=== PATIENT | female | born 1985 | race Caucasian/White ===

== ENCOUNTER 2017-01-27 19:57 | Emergency (ER) | payer BC ==
[2017-01-27 20:22] LABS: Bilirubin Negative (Negative); Blood, Urine Small (Negative); Clarity Clear (Clear); Glucose, Urine (Dipstick) Negative (Negative); Leukocyte Negative (Negative); Nitrite Negative (Negative); Protein, Urine (Dipstick) Negative (Neg-Trace); Urobilinogen 0.2 mg/dL (0.2-1.0)
[2017-01-27 20:23] LABS: Bacteria/HPF Rare-Few HPF (None Seen); Squamous Epithelial 0-3 HPF (0-3); WBC/HPF None Seen HPF (0-3)
[2017-01-27] MEDS ORDERED: HYDROcodone/Acetaminophen 5/325 mg Tablet ONE ×2 (20:24→21:33)
[2017-01-27 20:25] LABS: Pregnancy Test - Urine (BHCG) NEGATIVE (NEGATIVE); Pregu Control Bar Appear? YES (CONTROL BAR)
[2017-01-27] MEDS ORDERED: Ketorolac Tromethamine 30 MG/ML VIAL ONE ×2 (20:25→20:35)
[2017-01-27] MEDS ORDERED: Orphenadrine Citrate 60 MG/2 ML VIAL ONE (20:25)
[2017-01-27 20:45] LABS: #Basophils 0.1 thou/uL (0.0-0.2); #Eosinphils 0.2 thou/uL (0.0-0.7); #Lymphocytes 2.7 thou/uL (1.20-3.40); #Neutrophils 5.5 thou/uL (1.40-6.50); %Basophils 0.9 % (0.0-1.0); %Eosinophils 1.7 % (0.0-10.0); %Lymphocytes 28.6 % (21.0-51.0); %Monocytes 10.9 % (0.0-10.0); %Neutrophils 57.9 % (42.0-75.0); Hemoglobin 14.8 g/dL (12.0-16.0); Mean Corpuscular HGB CONC 33.7 g/dL (32.0-36.0); Mean Corpuscular Hemoglobin 30.2 pg (27.0-31.0); Mean Corpuscular Volume 89.6 fl (81.0-99.0); Mean Platelet Volume 7.4 fL (7.4-10.4); Platelet Count 277 thou/uL (130-400); RBC Distribution Width 12.1 % (11.5-14.5); White Blood Cell (WBC) Count 9.4 thou/uL (4.8-10.8)
[2017-01-27 21:01] LABS: ALT (SGPT) 20 U/L (8-55); AST (SGOT) 19 U/L (5-34); Albumin 4.5 g/dL (3.5-5.0); Alkaline Phosphatase 63 U/L (40-150); Anion Gap 16 mmol/L (10-20); BUN (Urea Nitrogen) 9 mg/dL (7.0-18.7); Bilirubin, Total 0.9 mg/dL (0.2-1.2); Calc. Creatinine Clearance 0 mL/min (70-130); Calcium 9.6 mg/dL (7.8-10.44); Carbon Dioxide 24 mmol/L (22-29); Chloride 107 mmol/L (98-107); Estimated GFR-MDRD Greater than 90; Globulin 2.9 g/dL (2.4-3.5); Glucose 85 mg/dL (70-105); Potassium 4.2 mmol/L (3.5-5.1); Protein, Total 7.4 g/dL (6.0-8.3); Sodium 143 mmol/L (136-145)
--- NOTE | 2017-01-27 21:08 | RAD ---
LUMBAR SPINE THREE VIEWS: 01/27/17 HISTORY: 31-year-old female with low back pain. No evidence for acute fracture or dislocation. No significant malalignment. IMPRESSION: Unremarkable lumbar spine. Incidental IUD in place. POS: CLAUDIO
== END 2017-01-27 21:39 | disposition home or self-care (01) ==
LOC: MADERS 19:57
DX: S39.012A Strain of muscle, fascia and tendon of lower back, initial encounter (principal); F32.9 Major depressive disorder, single episode, unspecified; F17.210 Nicotine dependence, cigarettes, uncomplicated; Z79.899 Other long term (current) drug therapy; X58.XXXA Exposure to other specified factors, initial encounter
CPT/HCPCS: 36415; 72100; 80053; 81003; 81015; 81025; 85025; 96372; J1885; J2360

== ENCOUNTER 2017-11-08 09:26 | Emergency (ER) | payer BC ==
[2017-11-08 09:55] LABS: Bilirubin Negative (Negative); Blood, Urine Trace (Negative); Clarity Clear (Clear); Glucose, Urine (Dipstick) Negative (Negative); Leukocyte Negative (Negative); Nitrite Negative (Negative); Protein, Urine (Dipstick) Negative (Neg-Trace); Urobilinogen 0.2 mg/dL (0.2-1.0); pH, Urine 5.5 (5.0-9.0)
[2017-11-08 09:56] LABS: Bacteria/HPF Rare-Few HPF (None Seen); RBC/HPF 0-3 HPF (0-3); Specific Gravity, Urine 1.002 (1.002-1.036); Squamous Epithelial 0-3 HPF (0-3); WBC/HPF 0-3 HPF (0-3)
[2017-11-08 09:57] LABS: Pregnancy Test - Urine (BHCG) Negative (Negative); Pregu Control Background? CLEAR/WHITE (CLR/WHITE); Pregu Control Bar Appear? YES (CONTROL BAR); Specific Gravity 1.002 (1.002-1.036)
[2017-11-08] MEDS ORDERED: HYDROcodone/Acetaminophen 10/325 mg Tablet ONE (10:02)
[2017-11-08] MEDS ORDERED: Sulfameth/Trimethoprim DS 800-160mg TAB ONE (10:03)
[2017-11-08] MEDS ORDERED: Ondansetron ODT 4 MG TAB ONE (10:03)
== END 2017-11-08 10:10 | disposition home or self-care (01) ==
LOC: MADERS 09:26
DX: N39.0 Urinary tract infection, site not specified (principal); F32.9 Major depressive disorder, single episode, unspecified; F17.210 Nicotine dependence, cigarettes, uncomplicated; Z79.891 Long term (current) use of opiate analgesic; Z79.899 Other long term (current) drug therapy
CPT/HCPCS: 81003; 81015; 81025; 99284; Q0162

== ENCOUNTER 2018-04-07 10:47 | Emergency (ER) | payer BC ==
[2018-04-07] MEDS ORDERED: Ibuprofen 800 MG TAB ONE (11:35)
--- NOTE | 2018-04-07 11:50 | RAD ---
RIGHT ANKLE 3 VIEWS: Date: 04/07/18 INDICATION: Pain. FINDINGS: There is no evidence of fracture or dislocation. Mortise is intact. IMPRESSION: No acute osseous abnormality of the right ankle. POS: BILL
--- NOTE | 2018-04-07 11:51 | RAD ---
3 VIEWS RIGHT FOOT: Date: 04/07/18 INDICATION: Slipped on kitchen floor with right foot pain. FINDINGS: No acute fracture or subluxation is evident. No radiopaque foreign body is noted. Lisfranc alignment is preserved. IMPRESSION: No acute osseous abnormality. POS: BILL
== END 2018-04-07 12:05 | disposition home or self-care (01) ==
LOC: MADERS 10:47
DX: S93.601A Unspecified sprain of right foot, initial encounter (principal); S93.491A Sprain of other ligament of right ankle, initial encounter; F32.9 Major depressive disorder, single episode, unspecified; F17.210 Nicotine dependence, cigarettes, uncomplicated; I10 Essential (primary) hypertension; W18.30XA Fall on same level, unspecified, initial encounter

== ENCOUNTER 2018-10-10 10:52 | Emergency (ER) | payer BC ==
--- NOTE | 2018-10-10 12:40 | RAD ---
PA AND LATERAL CHEST: HISTORY: Cough and fever. FINDINGS: Heart size and mediastinum are within normal limits. Lungs appear clear of any focal infiltrative pr ocess. IMPRESSION: No active intrathoracic disease. POS: [facility]
== END 2018-10-10 13:00 | disposition home or self-care (01) ==
LOC: MADERS 10:52
DX: B34.9 Viral infection, unspecified (principal); F32.9 Major depressive disorder, single episode, unspecified; F17.210 Nicotine dependence, cigarettes, uncomplicated
CPT/HCPCS: 71046; 87081; 87430; 87804

== ENCOUNTER 2019-04-15 13:23 | Emergency (ER) | payer BC ==
[2019-04-15] MEDS ORDERED: Adacel (T-DAP) 0.5 ML SYRINGE ONE (13:39)
== END 2019-04-15 14:00 | disposition home or self-care (01) ==
LOC: MADERS 13:23
DX: S91.311A Laceration without foreign body, right foot, initial encounter (principal); F32.9 Major depressive disorder, single episode, unspecified; F17.210 Nicotine dependence, cigarettes, uncomplicated; W45.8XXA Other foreign body or object entering through skin, initial encounter
CPT/HCPCS: 90471; 90715

== ENCOUNTER 2019-08-19 12:23 | Emergency (ER) | payer BC, SELFPAY ==
[2019-08-19 13:13] LABS: #Basophils 0.1 thou/uL (0.0-0.2); #Eosinphils 0.2 thou/uL (0.0-0.7); #Monocytes 0.7 thou/uL (0.11-0.59); #Neutrophils 4.6 thou/uL (1.40-6.50); %Eosinophils 2.1 % (0.0-10.0); %Lymphocytes 26.8 % (21.0-51.0); %Monocytes 8.9 % (0.0-10.0); %Neutrophils 61.2 % (42.0-75.0); Hemoglobin 15.5 g/dL (12.0-16.0); Mean Corpuscular HGB CONC 30.3 g/dL (32.0-36.0); Mean Corpuscular Hemoglobin 26.7 pg (27.0-31.0); Mean Corpuscular Volume 88.1 fL (78.0-98.0); Mean Platelet Volume 7.2 fL (7.4-10.4); Platelet Count 363 thou/uL (130-400); RBC Distribution Width 12.4 % (11.5-14.5); Red Blood Cell (RBC) Count 5.81 mill/uL (4.20-5.40); White Blood Cell (WBC) Count 7.6 thou/uL (4.8-10.8)
[2019-08-19 13:22] LABS: Bicarbonate (HCO3v) 28.4 mmol/L (22.0-28.0); CO2 Tension (PvCO2) 58.7 mmHg (40.0-50.0); Calcium, Ionized 1.25 mmol/L (See Comments:); Chloride 112 mmol/L (98-107); Hemoglobin - Calc 18.1 g/dL (12.0-16.0); Potassium 4.1 mmol/L (3.5-5.1); Sodium 144 mmol/L (138-145); T. Carbon Dioxide 30.2 mmol/L (22.0-28.0); vO2 Saturation-calc 55.4 % (60.0-85.0)
[2019-08-19 13:23] LABS: ALT (SGPT) 22 U/L (8-55); AST (SGOT) 17 U/L (5-34); Albumin 4.6 g/dL (3.5-5.0); Alkaline Phosphatase 72 U/L (40-110); Anion Gap 15 mmol/L (10-20); BUN (Urea Nitrogen) 7 mg/dL (7.0-18.7); Bilirubin, Total 0.6 mg/dL (0.2-1.2); Calc. Creatinine Clearance 0 mL/min (70-130); Calcium 9.7 mg/dL (7.8-10.44); Carbon Dioxide 26 mmol/L (22-29); Chloride 105 mmol/L (98-107); Estimated GFR-MDRD 78; Globulin 3.4 g/dL (2.4-3.5); Glucose 95 mg/dL (70-105); Sodium 142 mmol/L (136-145)
--- NOTE | 2019-08-19 13:43 | RAD ---
PORTABLE CHEST: 08/19/2019 PROVIDED CLINICAL HISTORY: Dyspnea. COMPARISON: 10/10/2018 FINDINGS: The cardiac and mediastinal silhouette is within normal limits. No focal consolidation, pleural fluid or pneumothorax apparent. IMPRESSION: No evidence for an acute cardiopulmonary process. POS: [facility]
--- NOTE | 2019-08-19 14:08 | CT ---
CT BRAIN: 08/19/2019 PROVIDED CLINICAL HISTORY: Injury. COMPARISON: 11/08/2013 FINDINGS: The ventricular system appears normal in size and morphology. There is no evidence for intracranial h emorrhage or mass effect. The extracranial soft tissues and osseous structures demonstrate an unremar kable CT appearance. IMPRESSION: No evidence for intracranial hemorrhage or mass effect. POS: [facility]MANI
[2019-08-19 15:12] LABS: Bilirubin Negative (Negative); Blood, Urine Small (Negative); Clarity Clear (Clear); Glucose, Urine (Dipstick) Negative (Negative); Leukocyte Negative (Negative); Nitrite Negative (Negative); Protein, Urine (Dipstick) Negative (Neg-Trace); Urobilinogen 0.2 mg/dL (Less than 2)
[2019-08-19 15:18] LABS: Bacteria/HPF Rare-Few HPF (None Seen); RBC/HPF 0-3 HPF (0-3); Squamous Epithelial 0-3 HPF (0-3); WBC/HPF None Seen HPF (0-3)
== END 2019-08-19 16:30 | disposition home or self-care (01) ==
LOC: MADERS 12:23
DX: I95.1 Orthostatic hypotension (principal); M79.7 Fibromyalgia; F32.9 Major depressive disorder, single episode, unspecified; F17.210 Nicotine dependence, cigarettes, uncomplicated
CPT/HCPCS: 36415; 70450; 71045; 80053; 81003; 81015; 82330; 82803; 83880; 84484; 85025; 93005

== ENCOUNTER 2022-07-05 02:52 | Emergency (ER) | payer SELFPAY ==
[2022-07-05 03:41] LABS: #Basophils 0.1 thou/uL (0.0-0.2); #Eosinphils 0.2 thou/uL (0.0-0.7); #Lymphocytes 2.3 thou/uL (1.20-3.40); #Monocytes 0.9 thou/uL (0.11-0.59); #Neutrophils 10.3 thou/uL (1.40-6.50); %Basophils 0.9 % (0.0-1.0); %Eosinophils 1.3 % (0.0-10.0); %Lymphocytes 16.7 % (21.0-51.0); %Monocytes 6.5 % (0.0-10.0); %Neutrophils 74.6 % (42.0-75.0); Hemoglobin 15.5 g/dL (12.0-16.0); Mean Corpuscular HGB CONC 32.6 g/dL (32.0-36.0); Mean Corpuscular Hemoglobin 28.9 pg (27.0-31.0); Mean Corpuscular Volume 88.6 fL (78.0-98.0); Mean Platelet Volume 7.3 fL (7.4-10.4); Platelet Count 329 thou/uL (130-400); RBC Distribution Width 12.1 % (11.5-14.5); Red Blood Cell (RBC) Count 5.36 mill/uL (4.20-5.40); White Blood Cell (WBC) Count 13.9 thou/uL (4.8-10.8)
[2022-07-05] MEDS ORDERED: Sodium Chloride 0.9% 1,000 ML ONE (03:50)
[2022-07-05] MEDS ORDERED: Ondansetron PF 4 MG/2 ML Vial ONE ×2 (03:50→05:28)
[2022-07-05] MEDS ORDERED: Morphine 4 MG/ML VIAL ONE ×2 (03:50→05:28)
[2022-07-05 03:51] LABS: BHCG - Serum Negative (NEGATIVE); Pregs Control Background? CLEAR/WHITE (CLR/WHITE); Pregs Control Bar Appear? YES (CONTROL BAR)
[2022-07-05 04:01] LABS: ALT (SGPT) 27 U/L (8-55); AST (SGOT) 18 U/L (5-34); Albumin 4.3 g/dL (3.5-5.0); Alkaline Phosphatase 79 U/L (40-110); Anion Gap 16 mmol/L (10-20); BUN (Urea Nitrogen) 17 mg/dL (7.0-18.7); Bilirubin, Total 0.3 mg/dL (0.2-1.2); Calc. Creatinine Clearance 0 mL/min (70-130); Calcium 9.4 mg/dL (7.8-10.44); Carbon Dioxide 23 mmol/L (22-29); Chloride 103 mmol/L (98-107); Estimated GFR 85; Globulin 3.3 g/dL (2.4-3.5); Glucose 100 mg/dL (70-105); Lipase 32 U/L (8-78); Potassium 3.7 mmol/L (3.5-5.1); Protein, Total 7.6 g/dL (6.0-8.3); Sodium 138 mmol/L (136-145)
[2022-07-05] MEDS ORDERED: metroNIDAZOLE 500 MG/100 ML BAG ONE ×2 (05:28→05:30)
[2022-07-05 06:10] LABS: SARS-CoV-2 NAA Rapid Test Not Detected (NotDetected)
[2022-07-05] MEDS ORDERED: Midazolam HCl 5 mg/5 ml Vial ONE (06:15)
[2022-07-05] MEDS ORDERED: fentaNYL Citrate/PF 100 MCG/2 ML SYRINGE ONE (06:16)
[2022-07-05] MEDS ORDERED: Iopamidol 370 76% 100 ML VIAL ONE (10:39)
== END 2022-07-05 06:06 | disposition short-term general hospital (02) ==
LOC: MADERS 02:52
DX: K35.80 Unspecified acute appendicitis (principal); R11.2 Nausea with vomiting, unspecified; F17.210 Nicotine dependence, cigarettes, uncomplicated; Z20.822 Contact with and (suspected) exposure to COVID-19
CPT/HCPCS: 74177; 80053; 83690; 84703; 85025; 96361; 96365; 96368; 96375; 96376; J1956; J2250; J2270; J2405; J7050; Q9967; U0002

== ENCOUNTER 2023-09-11 16:13 | Emergency (ER) | payer SELFPAY, OTHER ==
[2023-09-11 17:11] LABS: Prothrombin Time 13.5 sec (12.0-14.7)
[2023-09-11 17:12] LABS: BHCG - Serum Negative (NEGATIVE); Pregs Control Background? CLEAR/WHITE (CLR/WHITE); Pregs Control Bar Appear? YES (CONTROL BAR)
[2023-09-11 17:12] LABS: PTT 30.1 sec (22.9-36.1)
[2023-09-11] MEDS ORDERED: methylPREDNISolone Sod Succ/PF 125 MG/2 ML VIAL ONE (17:15)
[2023-09-11] MEDS ORDERED: Ketorolac Tromethamine 30 MG/ML VIAL ONE (17:15)
[2023-09-11] MEDS ORDERED: Ipratropium/Albuterol 3 ML NEB ONE (17:15)
[2023-09-11 17:20] LABS: ALT (SGPT) 41 U/L (8-55); AST (SGOT) 23 U/L (5-34); Albumin 4.6 g/dL (3.5-5.0); Alkaline Phosphatase 75 U/L (40-110); Anion Gap 19 mmol/L (10-20); BUN (Urea Nitrogen) 9 mg/dL (7.0-18.7); Bilirubin, Total 0.4 mg/dL (0.2-1.2); Calc. Creatinine Clearance 0 mL/min (70-130); Calcium 9.3 mg/dL (7.8-10.44); Carbon Dioxide 20 mmol/L (22-29); Chloride 101 mmol/L (98-107); Estimated GFR 92; Globulin 3.4 g/dL (2.4-3.5); Glucose 113 mg/dL (70-105); Potassium 3.8 mmol/L (3.5-5.1); Sodium 136 mmol/L (136-145)
[2023-09-11 17:23] LABS: Troponin I Less than 0.010 ng/mL (< 0.028)
[2023-09-11 17:29] LABS: SARS-CoV-2 NAA Rapid Test Not Detected (NotDetected)
[2023-09-11] MEDS ORDERED: Lactated Ringer's 2,000 ML ONE (17:35)
[2023-09-11] MEDS ORDERED: Ondansetron PF 4 MG/2 ML Vial ONE (17:35)
[2023-09-11 17:37] LABS: Hematocrit 47.4 % (36.0-47.0); Mean Corpuscular HGB CONC 31.7 g/dL (32.0-36.0); Mean Corpuscular Hemoglobin 28.4 pg (27.0-31.0); Mean Corpuscular Volume 89.7 fl (78.0-98.0); Mean Platelet Volume 7.8 fL (7.4-10.4); Platelet Count 228 10x3/uL (130-400); RBC Distribution Width 12.9 % (11.5-14.5); Red Blood Cell (RBC) Count 5.28 mill/uL (4.20-5.40); White Blood Cell (WBC) Count 5.6 10x3/uL (4.8-10.8)
[2023-09-11 17:41] LABS: Manual Diff?? YES
[2023-09-11 17:42] LABS: Band 1 % (5-11); Lymphocytes 16 % (21-51); MDiff Complete? YES; Monocytes 15 % (0-10); Neutrophil 56 % (42-75); Platelet Adequacy Comment Appears Adequate; RBC Morph Comment Within Normal Limits; Reactive Lymphocytes 12 % (0-10)
[2023-09-11 20:09] LABS: Lactic Acid 1.7 mmol/L (0.5-2.2)
== END 2023-09-11 20:39 | disposition home or self-care (01) ==
LOC: MADERS 16:13
DX: J10.1 Influenza due to other identified influenza virus with other respiratory manifestations (principal); J45.901 Unspecified asthma with (acute) exacerbation; F17.210 Nicotine dependence, cigarettes, uncomplicated
CPT/HCPCS: 71046; 80053; 83605; 84443; 84484; 84703; 85025; 85379; 85610; 85730; 87040; 93005; 94760; 96361; 96374; 96375; J1885; J2405; J2930; J7120; J7620